=== PATIENT | female | born 1940 | race Caucasian/White ===

== ENCOUNTER → 2016-09-28 | Outpatient (CLI) | payer MEDICARE, BC ==
[~2016-09-28] MED LIST: LANTUS100 U/M1 SQ; LOSARTAN POTASS50 MG PO; NOVOLOG100 U/M1 SQ; OMEPRAZOLE40 MG PO; UNITHROID25 MCG PO; ZOCOR20 MG PO
== END | disposition home or self-care (01) ==
LOC: CECH 13:05
DX: I35.0 Nonrheumatic aortic (valve) stenosis (principal)
CPT/HCPCS: 93306

== ENCOUNTER → 2016-12-01 | Outpatient (CLI) | payer MEDICARE, BC | END | disposition home or self-care (01) | LOC: CECH 06:11 | DX: I35.0 Nonrheumatic aortic (valve) stenosis (principal); R93.1 Abnormal findings on diagnostic imaging of heart and coronary circulation; I51.7 Cardiomegaly; I05.9 Rheumatic mitral valve disease, unspecified; I36.1 Nonrheumatic tricuspid (valve) insufficiency | CPT/HCPCS: 82947; 93312; J2250; J3010 ==